=== PATIENT | female | born 1950 | race Hispanic/Latino ===

== ENCOUNTER 2017-12-03 06:56 | Inpatient (IN) | payer MEDICARE ==
[2017-12-02 15:17] VITALS: BP 122/61
[2017-12-02 15:27] LABS: BASOPHILS % (AUTO) 0.8 % (0.0-5.0); EOSINOPHILS % (AUTO) 3.8 % (0.0-8.0); LYMPHOCYTES % (AUTO) 30.4 % (21.0-51.0); MEAN CORPUSCULAR HEMOGLOBIN 29.8 pg (27.0-33.0); MEAN CORPUSCULAR HGB CONC 33.8 g/dL (32.0-36.0); MONOCYTES % (AUTO) 6.6 % (3.0-13.0); NEUTROPHILS % (AUTO) 58.4 % (40.0-77.0); NUCLEATED RED BLOOD CELLS 0.1 % (0.0-0.19); PLATELET COUNT (AUTO) 272 K/uL (130-400); RED BLOOD CELL COUNT(AUTO) 4.55 MIL/uL (4.00-5.50); RED CELL DISTRIBUTION WIDTH 14.9 % (11.0-15.5); WHITE BLOOD COUNT (AUTO) 7.9 K/uL (4.8-10.8)
[2017-12-02 15:29] LABS: APPEARANCE,URINE CLOUDY (CLEAR); BILIRUBIN,URINE NEGATIVE (NEGATIVE); COLOR,URINE YELLOW (YELLOW); GLUCOSE, URINE (UA) 100 mg/dL (NEGATIVE); KETONES,URINE NEGATIVE (NEGATIVE); LEUKOCYTE ESTERASE ,URINE LARGE (NEGATIVE); NITRATE,URINE NEGATIVE (NEGATIVE); OCCULT BLOOD,URINE LARGE (NEGATIVE); PH,URINE 5.5 (5.0-8.0); PROTEIN,URINE 30 (NEGATIVE); UROBILINOGEN,URINE 0.2 mg/dL (0.2-1.0)
[2017-12-02 15:35] LABS: CREATININE 0.8 mg/dL (0.5-1.5); POTASSIUM 4.4 mmol/L (3.5-5.1)
[2017-12-02 15:37] LABS: BACTERIA,URINE Moderate /HPF (None Seen); SQUAMOUS EPITHELIAL CELL,UR Moderate /LPF (0-2)
[2017-12-02 15:39] LABS: INR 0.98 (0.85-1.15); PARTIAL THROMBOPLASTIN TIME 25.4 SEC (26.3-35.5); PROTHROMBIN TIME 10.3 SEC (9.6-11.6)
[2017-12-03] VITALS (15 sets, daily range): BP systolic 104–147; BP diastolic 54–72
[~2017-12-03] VITALS: Ht 157.5 cm; Wt 105.5 kg
[~2017-12-03 06:56] MED LIST: ASPI-555 PO; ATOR20TA65 PO; CLOP75TA14 PO; DIPERA PO; DOCU100C19 PO; DULO30CA51 PO; FAMO40TA7 PO; FURO-152 PO; INSU100I3 SQ; INSU300I SQ; LOSA25TA21 PO; METO-391 PO; MIRA25TA PO; NITR0.4T50 SL; OMEP40CA37 PO; PREG75 PO; SITA100T12 PO; [UNRECOGNIZED DRUG - OTHER] TP
[2017-12-03] MEDS ORDERED: SODIUM CHLORIDE 0.9% 1000ML 1,000 ML IV ONE (07:29)
[2017-12-03] MEDS ORDERED: SULF1TAB3 PO (07:30)
[2017-12-03] MEDS ORDERED: IOPAMIDOL-370 100 ML VIAL IV ONE (08:20)
[2017-12-03] MEDS ORDERED: ISOVUE-370 50ML VIAL IV ONE (08:20)
[2017-12-03] MEDS ORDERED: HEPARIN SODIUM 1000UNIT/ML 10ML VIAL ONE (08:20)
[2017-12-03] MEDS ORDERED: NITROGLYCERIN 5 MG/ML 10 ML VIAL IV ONE (08:20)
[2017-12-03] MEDS ORDERED: LIDOCAINE HCL 2% 20ML ONE (08:21)
[2017-12-03] MEDS ORDERED: FUROSEMIDE 10 MG/ML 2ML VIAL ONE (09:22)
[2017-12-03] MEDS ORDERED: NITROGLYCERIN 0.4 MG SL TAB SL SCH (09:45)
[2017-12-03] MEDS ORDERED: GLUCAGON 1MG KIT 1 MG ML IM PRN (09:45)
[2017-12-03] MEDS ORDERED: DEXTROSE 50%-WATER 50 ML DISP.SYRIN IV PRN (09:45)
[2017-12-03] MEDS: INSULIN LISPRO 100 UNIT/ML 3ML SQ SCH ×2 (11:20→17:00)
[2017-12-03 11:56] LABS: HEMATOCRIT 38.8 % (36-48); MEAN CORPUSCULAR HEMOGLOBIN 29.7 pg (27.0-33.0); MEAN CORPUSCULAR HGB CONC 33.5 g/dL (32.0-36.0); MEAN CORPUSCULAR VOLUME 88.6 fL (79-99); NUCLEATED RED BLOOD CELLS 0.1 % (0.0-0.19); PLATELET COUNT (AUTO) 243 K/uL (130-400); RED BLOOD CELL COUNT(AUTO) 4.38 MIL/uL (4.00-5.50); WHITE BLOOD COUNT (AUTO) 6.4 K/uL (4.8-10.8)
[2017-12-03] MEDS ORDERED: EPINEPHRINE 0.1 MG/ML 10 ML SYG IVP ONE (12:00)
[2017-12-03] MEDS ORDERED: HEPARIN SODIUM 1000UNIT/ML 10ML VIAL IV ONE (12:00)
[2017-12-03] MEDS ORDERED: CALCIUM CHLORIDE 100 MG/ML 10 ML SYG IVP ONE (12:00)
[2017-12-03 12:07] LABS: CHOLESTEROL 218 mg/dL (<200); HDL CHOLESTEROL 44 mg/dL (35-85); LDL DIRECT 157 mg/dL (0-99); TRIGLYCERIDES 163 mg/dL (30-200)
[2017-12-03 12:13] LABS: ALBUMIN 3.3 g/dL (3.5-5.0); BILIRUBIN,TOTAL 0.3 mg/dL (0.2-1.0); CREATININE 0.8 mg/dL (0.5-1.5); POTASSIUM 4.6 mmol/L (3.5-5.1); TOTAL PROTEIN, SERUM 7.8 g/dL (6.0-8.3)
[2017-12-03 12:22] LABS: INR 0.96 (0.85-1.15); PROTHROMBIN TIME 10.1 SEC (9.6-11.6)
[2017-12-03 15:06] LABS: APPEARANCE,URINE Cloudy (CLEAR); BILIRUBIN,URINE Negative (NEGATIVE); COLOR,URINE Yellow (YELLOW); GLUCOSE, URINE (UA) Negative (NEGATIVE); KETONES,URINE Negative (NEGATIVE); LEUKOCYTE ESTERASE ,URINE Moderate (NEGATIVE); NITRATE,URINE Negative (NEGATIVE); OCCULT BLOOD,URINE Moderate (NEGATIVE); PROTEIN,URINE Negative (NEGATIVE); UROBILINOGEN,URINE 0.2 mg/dL (0.2-1.0)
[2017-12-03 15:36] LABS: BACTERIA,URINE Many /HPF (None Seen)
[2017-12-03 15:37] LABS: MUCUS,URINE Rare LPF (None Seen); SQUAMOUS EPITHELIAL CELL,UR 30-50 /LPF (0-2)
[2017-12-03] MEDS: FAMOTIDINE 20MG TAB 20 MG TAB PO SCH (20:59)
[2017-12-03] MEDS: METOPROLOL TARTRATE 25 MG TAB PO SCH (20:59)
[2017-12-03] MEDS: PREGABALIN 75 MG CAPSULE PO SCH (20:59)
[2017-12-03] MEDS: ATORVASTATIN CALCIUM 20 MG TABLET PO SCH (20:59)
[2017-12-03] MEDS: LOSARTAN 50 MG TABLET PO SCH (21:00)
[2017-12-03] MEDS: [UNRECOGNIZED DRUG - OTHER] PO SCH (21:00)
[2017-12-03] MEDS ORDERED: CEFTRIAXONE 1GM/D5W 50ML 50 ML IV SCH (22:15)
[2017-12-04] MEDS ORDERED: ACETAMINOPHEN 325 MG TAB PO PRN
[2017-12-04] MEDS: CEFTRIAXONE SODIUM 1 GM IVP SCH ×2 (00:33→23:04)
[2017-12-04 03:44] VITALS: BP 129/62
[2017-12-04 04:25] LABS: HEMATOCRIT 36.4 % (36-48); MEAN CORPUSCULAR HEMOGLOBIN 29.9 pg (27.0-33.0); MEAN CORPUSCULAR HGB CONC 34.3 g/dL (32.0-36.0); MEAN CORPUSCULAR VOLUME 87.3 fL (79-99); PLATELET COUNT (AUTO) 223 K/uL (130-400); RED BLOOD CELL COUNT(AUTO) 4.17 MIL/uL (4.00-5.50); WHITE BLOOD COUNT (AUTO) 7.2 K/uL (4.8-10.8)
[2017-12-04 04:42] LABS: CREATININE 0.9 mg/dL (0.5-1.5)
[2017-12-04] MEDS ORDERED: CEFUROXIME 1.5GM+NS 100ML 100 ML IV SCH (06:00)
[2017-12-04] MEDS ORDERED: CEFUROXIME SODIUM 1.5 GM VIAL IVP SCH (06:00)
[2017-12-04] MEDS: INSULIN HUMULIN R 100 UNIT/ML 3ML SQ SCH ×4 (06:20→20:51)
[2017-12-04 07:35] VITALS: BP 137/66
[2017-12-04] MEDS ORDERED: INSULIN GLARGINE 100 UNITS/ML 10 ML VIAL SQ SCH (08:00)
[2017-12-04] MEDS ORDERED: ASPIRIN 81 MG EC TAB PO SCH (09:00)
[2017-12-04] MEDS ORDERED: ***HM***(Mirabegron (Myrbetriq) 25 MG) PO SCH (09:00)
[2017-12-04] MEDS ORDERED: APPL TP SCH (09:00)
[2017-12-04] MEDS ORDERED: FUROSEMIDE 20 MG TABLET PO SCH (09:00)
[2017-12-04] MEDS ORDERED: LINAGLIPTIN 5 MG TABLET PO SCH ×2 (09:00→13:23)
[2017-12-04] MEDS ORDERED: DOCUSATE SODIUM 100 MG CAP PO SCH (09:00)
[2017-12-04] MEDS ORDERED: DULOXETINE HCL 30 MG CAP PO SCH (09:00)
[2017-12-04 11:15] VITALS: BP 121/62
[2017-12-04] MEDS: METOPROLOL TARTRATE 25 MG TAB PO SCH ×2 (12:03→21:06)
[2017-12-04] MEDS: PANTOPRAZOLE SODIUM 40 MG TABLET.DR PO SCH (12:04)
[2017-12-04] MEDS: [UNRECOGNIZED DRUG - OTHER] PO SCH ×2 (12:36→21:00)
[2017-12-04] MEDS: INSULIN LISPRO 100 UNIT/ML 3ML SQ SCH ×2 (13:04→17:22)
[2017-12-04 16:11] VITALS: BP 109/62
[2017-12-04 19:13] VITALS: BP 97/64
[2017-12-04] MEDS ORDERED: LOPERAMIDE HCL 1 MG/5 ML UNIT DOSE CUP PO SCH (19:45)
[2017-12-04] MEDS: ATORVASTATIN CALCIUM 20 MG TABLET PO SCH (21:06)
[2017-12-04] MEDS: PREGABALIN 75 MG CAPSULE PO SCH (21:06)
[2017-12-04] MEDS: FAMOTIDINE 20MG TAB 20 MG TAB PO SCH (21:06)
[2017-12-04] MEDS: LOSARTAN 50 MG TABLET PO SCH (21:07)
[2017-12-05] VITALS (20 sets, daily range): BP systolic 94–157; BP diastolic 43–89
[2017-12-05] MEDS: PANTOPRAZOLE SODIUM 40 MG TABLET.DR PO SCH (05:57)
[2017-12-05] MEDS: INSULIN HUMULIN R 100 UNIT/ML 3ML SQ SCH (05:57)
[2017-12-05] MEDS: INSULIN LISPRO 100 UNIT/ML 3ML SQ SCH (05:57)
[2017-12-05] MEDS: METOPROLOL TARTRATE 25 MG TAB PO SCH (06:38)
[2017-12-05] MEDS ORDERED: OCTYL 2-CYANOACRYLATE 1 EACH TP ONE (06:43)
[2017-12-05] MEDS ORDERED: BACITRACIN 50,000 UNIT VIAL ONE (06:43)
[2017-12-05] MEDS ORDERED: PAPAVERINE HCL 30 MG/ML 2ML VIAL ONE (06:43)
[2017-12-05] MEDS ORDERED: NITROGLYCERIN 50 MG/D5% WATER 1 BOT ONE (06:43)
[2017-12-05] MEDS ORDERED: SODIUM CHLORIDE 0.9% 1000ML 1,000 ML IV ONE ×2 (06:44→10:16)
[2017-12-05] MEDS ORDERED: EPINEPHRINE 1 MG/ML 30ML VIAL IJ ONE (06:44)
[2017-12-05] MEDS ORDERED: AMINOCAPROIC ACID 250 MG/ML 20 ML VIAL IV ONE ×2 (06:55→07:46)
[2017-12-05] MEDS: CEFUROXIME SODIUM 1.5 GM VIAL ONE ×2 (06:56→08:00)
[2017-12-05] MEDS ORDERED: SODIUM BICARB 8.4% 50ML SYRINGE ONE ×5 (07:44→10:45)
[2017-12-05] MEDS ORDERED: ROCURONIUM BROMIDE 10MG/1ML 5ML VL ONE ×2 (07:45→07:46)
[2017-12-05] MEDS ORDERED: AMIODARONE HCL 900MG/18ML IV ONE (07:46)
[2017-12-05] MEDS ORDERED: PROTAMINE SULFATE 10 MG/ML 25ML VIAL IV ONE (07:46)
[2017-12-05] MEDS ORDERED: PROPOFOL 10 MG/ML 20ML VIAL IV ONE (07:46)
[2017-12-05] MEDS ORDERED: LIDOCAINE PF 2% 5ML ABBOJECT ONE (07:46)
[2017-12-05] MEDS ORDERED: EPINEPHRINE 1 MG/ML AMPULE ONE (07:46)
[2017-12-05] MEDS ORDERED: MIDAZOLAM HCL 1 MG/ML 5ML VIAL ONE (07:46)
[2017-12-05] MEDS ORDERED: GLYCOPYRROLATE 0.2 MG/ML 5 ML VIAL ONE (07:46)
[2017-12-05] MEDS ORDERED: MILRINONE-D5W 20 MG/100 ML 0 ML IV ONE (07:46)
[2017-12-05] MEDS ORDERED: NOREPINEPHRINE BITARTRATE 1 MG/1 ML ML IV ONE (07:46)
[2017-12-05] MEDS ORDERED: FENTANYL CITRATE PF 50 MCG/1 ML 20ML VIAL IJ ONE (07:46)
[2017-12-05] MEDS ORDERED: ESMOLOL HCL 10 MG/ML 10 ML VIAL ONE (07:46)
[2017-12-05] MEDS ORDERED: KETAMINE 50MG/ML SYRINGE 50 MG/ML DISP.SYRIN IV ONE (07:46)
[2017-12-05] MEDS ORDERED: HEPARIN SODIUM 1000UNIT/ML 10ML VIAL ONE (07:46)
[2017-12-05 08:46] LABS: ABG BASE EXCESS -2.6 mmol/L (-2.0-3.0); ABG HCO3 21.8 mmol/L (21.0-28.0); ABG OXYGEN SATURATION 99.3 % (95.0-99.0); ABG PCO2 36 mmHg (32-45)
[2017-12-05] MEDS ORDERED: THROMBIN-JMI 5000 UNIT/VIAL TP ONE (08:48)
[2017-12-05] MEDS ORDERED: AMBU PUMP 1 EACH EACH MISC SCH (09:45)
[2017-12-05 10:36] LABS: ABG BASE EXCESS -3.3 mmol/L (-2.0-3.0); ABG HCO3 20.5 mmol/L (21.0-28.0); ABG OXYGEN SATURATION 99.1 % (95.0-99.0); ABG PCO2 33 mmHg (32-45)
[2017-12-05] MEDS ORDERED: SODIUM CHLORIDE 0.9% 500ML 500 ML IV SCH (10:36)
[2017-12-05] MEDS ORDERED: MORPHINE SULFATE 4 MG/1ML SYG IV PRN (10:45)
[2017-12-05] MEDS ORDERED: EPINEPHRINE 2 MG in SODIUM CHLORIDE 0.9% 250 ML IV PRN (10:45)
[2017-12-05] MEDS ORDERED: NITROGLYCERIN 50 MG/D5% WATER 250 BOT IV SCH (10:45)
[2017-12-05] MEDS ORDERED: ACETAMINOPHEN 650 MG SUPPOSITORY RC PRN (10:45)
[2017-12-05] MEDS ORDERED: CALCIUM GLUCONATE 1 GM in SODIUM CHLORIDE 0.9% 50 ML IV PRN (10:45)
[2017-12-05] MEDS ORDERED: NICARDIPINE HCL 100 MG in SODIUM CHLORIDE 0.9% 100 ML IV PRN (10:45)
[2017-12-05] MEDS ORDERED: SODIUM CHLORIDE 0.9% 1000ML 1,000 ML IV SCH (10:45)
[2017-12-05] MEDS ORDERED: MORPHINE SULFATE 2 MG/ML 1ML SYG IV PRN (10:45)
[2017-12-05] MEDS ORDERED: AMINOCAPROIC ACID 15,000 MG in SODIUM CHLORIDE 0.9% 250 ML IV SCH (10:45)
[2017-12-05] MEDS ORDERED: PROPOFOL 1000 MG/100 ML 100 ML IV PRN (10:45)
[2017-12-05] MEDS ORDERED: DEXTROSE 50%-WATER 50 ML DISP.SYRIN IV PRN (10:45)
[2017-12-05] MEDS ORDERED: NOREPINEPHRINE 4MG/NS 250ML 250 ML IV PRN (10:45)
[2017-12-05] MEDS ORDERED: SODIUM CHLORIDE 0.9% 10 ML VIAL IVP PRN (10:45)
[2017-12-05] MEDS ORDERED: POTASSIUM PHOS 15 mMOL+NS250ML 250 ML IV PRN (10:45)
[2017-12-05] MEDS ORDERED: GLUCAGON 1MG KIT 1 MG ML IM PRN (10:45)
[2017-12-05] MEDS ORDERED: ALBUMIN (HUMAN) 5% 250 ML IV PRN (10:45)
[2017-12-05] MEDS ORDERED: SODIUM CHLORIDE 0.9% 250 ML IV PRN (10:45)
[2017-12-05] MEDS ORDERED: ROPIVACAINE 0.2% 2MG/ML 100ML VIAL IJ ONE (11:00)
[2017-12-05 11:41] LABS: HEMATOCRIT 34.4 % (36-48); MEAN CORPUSCULAR HEMOGLOBIN 29.9 pg (27.0-33.0); MEAN CORPUSCULAR HGB CONC 33.8 g/dL (32.0-36.0); MEAN CORPUSCULAR VOLUME 88.3 fL (79-99); PLATELET COUNT (AUTO) 313 K/uL (130-400); RED BLOOD CELL COUNT(AUTO) 3.89 MIL/uL (4.00-5.50); RED CELL DISTRIBUTION WIDTH 14.9 % (11.0-15.5); WHITE BLOOD COUNT (AUTO) 28.7 K/uL (4.8-10.8)
[2017-12-05 11:56] LABS: CREATININE 0.9 mg/dL (0.5-1.5); MAGNESIUM 1.4 mg/dL (1.80-2.40); PHOSPHORUS 4.7 mg/dL (2.5-4.9); POTASSIUM 4.1 mmol/L (3.5-5.1)
[2017-12-05] MEDS: INSULIN REGULAR, HUMAN 3ML 100 UNIT in SODIUM CHLORIDE 0.9% 99 ML IV SCH ×4 (12:14→17:46)
[2017-12-05] MEDS: POTASSIUM CHLORIDE 20MEQ/100ML 100 ML IV PRN ×4 (12:16→18:21)
[2017-12-05 12:22] LABS: ABG HCO3 20.9 mmol/L (21.0-28.0); ABG OXYGEN SATURATION 98.2 % (95.0-99.0); ABG PCO2 46 mmHg (32-45)
[2017-12-05] MEDS ORDERED: SODIUM BICARB 50MEQ 50ML VIAL ONE ×3 (12:22→14:10)
[2017-12-05] MEDS: SODIUM BICARB 8.4% 50ML SYRINGE IV PRN ×2 (12:23→13:27)
[2017-12-05] MEDS: MAGNESIUM 2GM PREMIX 50ML 50 ML IV PRN ×2 (12:30→20:59)
[2017-12-05 13:23] LABS: ABG BASE EXCESS -4.5 mmol/L (-2.0-3.0); ABG HCO3 21.4 mmol/L (21.0-28.0); ABG OXYGEN SATURATION 96.1 % (95.0-99.0); ABG PCO2 43 mmHg (32-45)
[2017-12-05 15:31] LABS: CREATININE 1.2 mg/dL (0.5-1.5); POTASSIUM 3.7 mmol/L (3.5-5.1)
[2017-12-05 18:13] LABS: ABG BASE EXCESS -0.4 mmol/L (-2.0-3.0); ABG HCO3 25.1 mmol/L (21.0-28.0); ABG OXYGEN SATURATION 96.8 % (95.0-99.0); ABG PCO2 45 mmHg (32-45)
[2017-12-05] MEDS: CEFUROXIME SODIUM 1.5 GM VIAL IVP SCH (18:21)
[2017-12-05] MEDS: WATER FOR INJECTION,STERILE 20 ML VIAL IJ SCH (18:22)
[2017-12-05] MEDS ORDERED: CEFUROXIME 1.5GM+NS 100ML 100 ML IV SCH (18:45)
[2017-12-05 19:54] LABS: ABG BASE EXCESS 0.5 mmol/L (-2.0-3.0); ABG OXYGEN SATURATION 95.4 % (95.0-99.0); ABG PCO2 45 mmHg (32-45)
[2017-12-05 20:48] LABS: MAGNESIUM 1.7 mg/dL (1.80-2.40); POTASSIUM 4.1 mmol/L (3.5-5.1)
[2017-12-05] MEDS: ONDANSETRON HCL 4 MG/2 ML VIAL IV PRN (21:49)
[2017-12-05] MEDS: HYDROCODONE/ACETAMINOPHEN 5/325 MG TAB PO PRN (23:50)
[2017-12-06] VITALS (23 sets, daily range): BP systolic 90–138; BP diastolic 42–70
[2017-12-06] MEDS: INSULIN REGULAR, HUMAN 3ML 100 UNIT in SODIUM CHLORIDE 0.9% 99 ML IV SCH ×2 (03:28)
[2017-12-06 04:18] LABS: HEMATOCRIT 29.3 % (36-48); MEAN CORPUSCULAR HEMOGLOBIN 30.9 pg (27.0-33.0); MEAN CORPUSCULAR HGB CONC 35.1 g/dL (32.0-36.0); MEAN CORPUSCULAR VOLUME 88.2 fL (79-99); PLATELET COUNT (AUTO) 256 K/uL (130-400); RED BLOOD CELL COUNT(AUTO) 3.33 MIL/uL (4.00-5.50); RED CELL DISTRIBUTION WIDTH 15.2 % (11.0-15.5); WHITE BLOOD COUNT (AUTO) 22.7 K/uL (4.8-10.8)
[2017-12-06] MEDS: ACETAMINOPHEN 325 MG TAB PO PRN (04:27)
[2017-12-06 04:28] LABS: CREATININE 0.9 mg/dL (0.5-1.5); MAGNESIUM 2.3 mg/dL (1.80-2.40); PHOSPHORUS 4.6 mg/dL (2.5-4.9); POTASSIUM 4.7 mmol/L (3.5-5.1)
[2017-12-06] MEDS: ONDANSETRON HCL 4 MG/2 ML VIAL IV PRN (04:29)
[2017-12-06] MEDS: CEFUROXIME SODIUM 1.5 GM VIAL IVP SCH ×2 (06:28→19:01)
[2017-12-06] MEDS: WATER FOR INJECTION,STERILE 20 ML VIAL IJ SCH ×2 (06:29→19:01)
[2017-12-06] MEDS: ASPIRIN 81MG TAB.CHEW PO SCH (09:47)
[2017-12-06] MEDS: PANTOPRAZOLE SODIUM 40 MG TABLET.DR PO SCH (09:47)
[2017-12-06] MEDS: EPINEPHRINE 8 MG in SODIUM CHLORIDE 0.9% 250 ML IV PRN (14:49)
[2017-12-06] MEDS: ATORVASTATIN CALCIUM 10 MG TABLET PO SCH (20:29)
[2017-12-06] MEDS: HYDROCODONE/ACETAMINOPHEN 5/325 MG TAB PO PRN (20:29)
[2017-12-07] VITALS (28 sets, daily range): BP systolic 47–220; BP diastolic 19–135
[2017-12-07] MEDS: TRAMADOL HCL 50 MG TABLET PO PRN (01:18)
[2017-12-07] MEDS ORDERED: INSULIN HUMULIN R 100 UNIT/ML 3ML ONE (05:20)
[2017-12-07] MEDS ORDERED: SODIUM CHLORIDE 0.9% 100 ML IV ONE (05:20)
[2017-12-07 05:52] LABS: HEMATOCRIT 26.8 % (36-48); MEAN CORPUSCULAR HEMOGLOBIN 29.8 pg (27.0-33.0); MEAN CORPUSCULAR HGB CONC 33.2 g/dL (32.0-36.0); MEAN CORPUSCULAR VOLUME 89.6 fL (79-99); PLATELET COUNT (AUTO) 207 K/uL (130-400); RED BLOOD CELL COUNT(AUTO) 2.99 MIL/uL (4.00-5.50); RED CELL DISTRIBUTION WIDTH 15.7 % (11.0-15.5); WHITE BLOOD COUNT (AUTO) 20.3 K/uL (4.8-10.8)
[2017-12-07 05:59] LABS: CREATININE 0.8 mg/dL (0.5-1.5); POTASSIUM 4.4 mmol/L (3.5-5.1)
[2017-12-07 06:10] LABS: ALBUMIN 2.1 g/dL (3.5-5.0); BILIRUBIN,TOTAL 0.5 mg/dL (0.2-1.0); MAGNESIUM 2.2 mg/dL (1.80-2.40); TOTAL PROTEIN, SERUM 6.4 g/dL (6.0-8.3)
[2017-12-07 06:23] LABS: BAND NEUTROPHILS % (MANUAL) 15 % (0-2); BASOPHILS % (MANUAL) 1 % (0-2); LYMPHOCYTES % (MANUAL) 4 % (22-44); MAN.DIFF COMMENT-IMPRESSION MANUAL DIFFERENTIAL; MONOCYTES % (MANUAL) 6 % (2-9); PLATELET MORPHOLOGY COMMENT ADEQUATE; SEGMENTED NEUTROPHILS % 74 % (40-70)
[2017-12-07] MEDS: ASPIRIN 81MG TAB.CHEW PO SCH (08:38)
[2017-12-07] MEDS: PANTOPRAZOLE SODIUM 40 MG TABLET.DR PO SCH (08:38)
[2017-12-07] MEDS: INSULIN HUMULIN R 100 UNIT/ML 3ML SQ SCH ×3 (11:19→21:00)
[2017-12-07] MEDS: FUROSEMIDE 20 MG TABLET PO SCH ×2 (16:42→21:09)
[2017-12-07] MEDS ORDERED: METOPROLOL TARTRATE 25 MG TAB PO SCH (21:00)
[2017-12-07] MEDS: ATORVASTATIN CALCIUM 10 MG TABLET PO SCH (21:09)
[2017-12-07] MEDS ORDERED: PROPOFOL 1000 MG/100 ML 100 ML IV ONE (21:28)
[2017-12-07 21:41] LABS: HEMATOCRIT 27.2 % (36-48); MEAN CORPUSCULAR HEMOGLOBIN 29.7 pg (27.0-33.0); MEAN CORPUSCULAR HGB CONC 32.3 g/dL (32.0-36.0); MEAN CORPUSCULAR VOLUME 92.1 fL (79-99); PLATELET COUNT (AUTO) 232 K/uL (130-400); RED BLOOD CELL COUNT(AUTO) 2.95 MIL/uL (4.00-5.50); RED CELL DISTRIBUTION WIDTH 15.8 % (11.0-15.5); WHITE BLOOD COUNT (AUTO) 24.1 K/uL (4.8-10.8)
[2017-12-07] MEDS ORDERED: EPINEPHRINE 1 MG/ML AMPULE ONE (21:46)
[2017-12-07 21:53] LABS: BAND NEUTROPHILS % (MANUAL) 1 % (0-2); LYMPHOCYTES % (MANUAL) 22 % (22-44); MONOCYTES % (MANUAL) 6 % (2-9); POTASSIUM 3.3 mmol/L (3.5-5.1); SEGMENTED NEUTROPHILS % 71 % (40-70)
[2017-12-07 21:54] LABS: NUCLEATED RED BLOOD CELLS 1.2 % (0.0-0.19); PLATELET MORPHOLOGY COMMENT ADEQUATE
[2017-12-07 21:57] LABS: BILIRUBIN,TOTAL 0.4 mg/dL (0.2-1.0); MAGNESIUM 2.6 mg/dL (1.80-2.40); PHOSPHORUS 3.6 mg/dL (2.5-4.9); TOTAL PROTEIN, SERUM 6.5 g/dL (6.0-8.3)
[2017-12-07 22:00] LABS: ABG BASE EXCESS -1.9 mmol/L (-2.0-3.0); ABG HCO3 24.6 mmol/L (21.0-28.0); ABG PCO2 50 mmHg (32-45)
[2017-12-07] MEDS ORDERED: DEXTROSE 5% IV PRN (23:45)
[2017-12-07] MEDS ORDERED: WATER IV PRN (23:45)
[2017-12-07] MEDS ORDERED: EPINEPHRINE IV PRN (23:45)
[2017-12-08] VITALS (20 sets, daily range): BP systolic 93–146; BP diastolic 45–92
[2017-12-08] LABS: ABG HCO3 26.1 mmol/L (21.0-28.0); ABG OXYGEN SATURATION 98.8 % (95.0-99.0); ABG PCO2 44 mmHg (32-45)
[2017-12-08 01:27] LABS: ABG BASE EXCESS 1.3 mmol/L (-2.0-3.0); ABG HCO3 25.9 mmol/L (21.0-28.0); ABG PCO2 41 mmHg (32-45)
[2017-12-08 02:57] LABS: HEMATOCRIT 24.7 % (36-48); MEAN CORPUSCULAR HEMOGLOBIN 30.6 pg (27.0-33.0); MEAN CORPUSCULAR VOLUME 89.9 fL (79-99); NUCLEATED RED BLOOD CELLS 0.1 % (0.0-0.19); PLATELET COUNT (AUTO) 240 K/uL (130-400); RED BLOOD CELL COUNT(AUTO) 2.75 MIL/uL (4.00-5.50); RED CELL DISTRIBUTION WIDTH 15.9 % (11.0-15.5); WHITE BLOOD COUNT (AUTO) 19.5 K/uL (4.8-10.8)
[2017-12-08 03:24] LABS: BILIRUBIN,TOTAL 0.5 mg/dL (0.2-1.0); CREATININE 1.2 mg/dL (0.5-1.5); POTASSIUM 4.5 mmol/L (3.5-5.1); TOTAL PROTEIN, SERUM 6.4 g/dL (6.0-8.3)
[2017-12-08 03:37] LABS: ABG BASE EXCESS 2.7 mmol/L (-2.0-3.0); ABG HCO3 26.6 mmol/L (21.0-28.0); ABG OXYGEN SATURATION 96.8 % (95.0-99.0); ABG PCO2 39 mmHg (32-45)
[2017-12-08 03:41] LABS: BAND NEUTROPHILS % (MANUAL) 12 % (0-2); EOSINOPHILS % (MANUAL) 2 % (1-6); LYMPHOCYTES % (MANUAL) 16 % (22-44); MAN.DIFF COMMENT-IMPRESSION MANUAL DIFFERENTIAL; MONOCYTES % (MANUAL) 3 % (2-9); PLATELET MORPHOLOGY COMMENT ADEQUATE; SEGMENTED NEUTROPHILS % 67 % (40-70)
[2017-12-08 06:24] LABS: ABG BASE EXCESS 3.1 mmol/L (-2.0-3.0); ABG HCO3 27.8 mmol/L (21.0-28.0); ABG OXYGEN SATURATION 95.8 % (95.0-99.0); ABG PCO2 43 mmHg (32-45)
[2017-12-08] MEDS: TRAMADOL HCL 50 MG TABLET PO PRN ×2 (06:56→20:28)
[2017-12-08] MEDS: INSULIN HUMULIN R 100 UNIT/ML 3ML SQ SCH ×4 (06:57→20:24)
[2017-12-08] MEDS: FUROSEMIDE 20 MG TABLET PO SCH ×2 (08:18→20:26)
[2017-12-08] MEDS: ASPIRIN 81MG TAB.CHEW PO SCH (08:18)
[2017-12-08] MEDS: PANTOPRAZOLE SODIUM 40 MG TABLET.DR PO SCH (08:18)
[2017-12-08] MEDS: ENOXAPARIN SODIUM 30 MG/0.3 ML SQ SCH (08:22)
[2017-12-08] MEDS: ATORVASTATIN CALCIUM 10 MG TABLET PO SCH (20:26)
[2017-12-09] VITALS (25 sets, daily range): BP systolic 97–168; BP diastolic 51–84
[2017-12-09] MEDS: TRAMADOL HCL 50 MG TABLET PO PRN ×2 (01:14→20:30)
[2017-12-09] MEDS ORDERED: AMIODARONE HCL 900MG/18ML IV ONE ×2 (01:36→02:08)
[2017-12-09] MEDS ORDERED: DEXTROSE 5%-WATER 500 ML IV ONE (01:37)
[2017-12-09] MEDS ORDERED: AMIODARONE HCL 150 MG in DEXTROSE 5%-WATER 100 ML IV SCH (02:00)
[2017-12-09] MEDS ORDERED: AMIODARONE HCL 900 MG in DEXTROSE 5%-WATER 500 ML IV SCH (02:00)
[2017-12-09 05:25] LABS: HEMATOCRIT 23.7 % (36-48); MEAN CORPUSCULAR HEMOGLOBIN 29.9 pg (27.0-33.0); MEAN CORPUSCULAR HGB CONC 32.9 g/dL (32.0-36.0); MEAN CORPUSCULAR VOLUME 90.8 fL (79-99); NUCLEATED RED BLOOD CELLS 0.4 % (0.0-0.19); PLATELET COUNT (AUTO) 233 K/uL (130-400); RED BLOOD CELL COUNT(AUTO) 2.61 MIL/uL (4.00-5.50); RED CELL DISTRIBUTION WIDTH 15.6 % (11.0-15.5); WHITE BLOOD COUNT (AUTO) 11.5 K/uL (4.8-10.8)
[2017-12-09 05:35] LABS: CREATININE 0.9 mg/dL (0.5-1.5); MAGNESIUM 2.3 mg/dL (1.80-2.40); PHOSPHORUS 2.8 mg/dL (2.5-4.9); POTASSIUM 4.4 mmol/L (3.5-5.1)
[2017-12-09 05:43] LABS: B-TYPE NATRIURETIC PEPTIDE 1100 pg/mL (0-100)
[2017-12-09] MEDS: INSULIN HUMULIN R 100 UNIT/ML 3ML SQ SCH ×4 (06:41→20:43)
[2017-12-09] MEDS ORDERED: FUROSEMIDE 10 MG/ML 2ML VIAL IV SCH (07:45)
[2017-12-09 08:14] LABS: CREATINE KINASE MB 0.9 ng/mL (0.5-3.6)
[2017-12-09 08:24] LABS: TROPONIN I 0.62 ng/mL (0.00-0.06)
[2017-12-09] MEDS: ASPIRIN 81MG TAB.CHEW PO SCH (08:59)
[2017-12-09] MEDS: PANTOPRAZOLE SODIUM 40 MG TABLET.DR PO SCH (08:59)
[2017-12-09] MEDS: ENOXAPARIN SODIUM 30 MG/0.3 ML SQ SCH (09:00)
[2017-12-09] MEDS ORDERED: MEROPENEM 1GM IVPB PREMIXED 1 GM IV SCH (09:15)
[2017-12-09] MEDS: FUROSEMIDE 100 MG in SODIUM CHLORIDE 0.9% 90 ML IV SCH ×2 (09:22→22:44)
[2017-12-09] MEDS: MEROPENEM 1 GM VIAL IVP SCH ×2 (09:57→20:25)
[2017-12-09] MEDS ORDERED: DOBUTAMINE 250MG/D5 250ML 250 ML IV SCH (11:30)
[2017-12-09] MEDS: EPINEPHRINE 8 MG in SODIUM CHLORIDE 0.9% 250 ML IV PRN (12:40)
[2017-12-09] MEDS: DOBUTAMINE HCL 250 MG in SODIUM CHLORIDE 0.9% 250 ML IV SCH (20:06)
[2017-12-09] MEDS: ATORVASTATIN CALCIUM 10 MG TABLET PO SCH (20:25)
[2017-12-10] VITALS (24 sets, daily range): BP systolic 93–153; BP diastolic 46–82
[2017-12-10] MEDS: DOBUTAMINE HCL 250 MG in SODIUM CHLORIDE 0.9% 250 ML IV SCH ×2 (02:44→12:15)
[2017-12-10 04:13] LABS: HEMATOCRIT 22.3 % (36-48); MEAN CORPUSCULAR HEMOGLOBIN 31.4 pg (27.0-33.0); MEAN CORPUSCULAR HGB CONC 35.4 g/dL (32.0-36.0); MEAN CORPUSCULAR VOLUME 88.9 fL (79-99); NUCLEATED RED BLOOD CELLS 0.5 % (0.0-0.19); PLATELET COUNT (AUTO) 225 K/uL (130-400); RED BLOOD CELL COUNT(AUTO) 2.51 MIL/uL (4.00-5.50); RED CELL DISTRIBUTION WIDTH 15.8 % (11.0-15.5); WHITE BLOOD COUNT (AUTO) 7.9 K/uL (4.8-10.8)
[2017-12-10 04:27] LABS: CREATININE 0.8 mg/dL (0.5-1.5); MAGNESIUM 1.7 mg/dL (1.80-2.40); PHOSPHORUS 2.3 mg/dL (2.5-4.9); POTASSIUM 3.7 mmol/L (3.5-5.1)
[2017-12-10] MEDS: POTASSIUM CHLORIDE 20MEQ/100ML 100 ML IV PRN (04:41)
[2017-12-10 04:58] LABS: BAND NEUTROPHILS % (MANUAL) 5 % (0-2); EOSINOPHILS % (MANUAL) 3 % (1-6); LYMPHOCYTES % (MANUAL) 32 % (22-44); MAN.DIFF COMMENT-IMPRESSION MANUAL DIFFERENTIAL; MONOCYTES % (MANUAL) 4 % (2-9); PLATELET MORPHOLOGY COMMENT ADEQUATE; SEGMENTED NEUTROPHILS % 56 % (40-70)
[2017-12-10 05:19] LABS: B-TYPE NATRIURETIC PEPTIDE 728 pg/mL (0-100)
[2017-12-10] MEDS: MAGNESIUM 2GM PREMIX 50ML 50 ML IV PRN (05:53)
[2017-12-10] MEDS: INSULIN HUMULIN R 100 UNIT/ML 3ML SQ SCH ×4 (05:58→20:24)
[2017-12-10 07:52] LABS: ABG BASE EXCESS 5.2 mmol/L (-2.0-3.0); ABG HCO3 30.9 mmol/L (21.0-28.0); ABG PCO2 49 mmHg (32-45)
[2017-12-10] MEDS: MEROPENEM 1 GM VIAL IVP SCH ×2 (08:28→20:29)
[2017-12-10] MEDS: FUROSEMIDE 10 MG/ML 2ML VIAL IV SCH ×2 (08:28→18:08)
[2017-12-10] MEDS: PANTOPRAZOLE SODIUM 40 MG TABLET.DR PO SCH (08:28)
[2017-12-10] MEDS: ASPIRIN 81MG TAB.CHEW PO SCH (08:28)
[2017-12-10] MEDS: HYDROCODONE/ACETAMINOPHEN 5/325 MG TAB PO PRN ×3 (08:43→20:33)
[2017-12-10] MEDS ORDERED: AMIODARONE HCL 200 MG TABLET PO SCH (09:00)
[2017-12-10] MEDS ORDERED: DOBUTAMINE HCL 250 MG in SODIUM CHLORIDE 0.9% 250 ML IV SCH (12:30)
[2017-12-10] MEDS ORDERED: POTASSIUM PHOS 15 mMOL+NS250ML 250 ML IV SCH (16:00)
[2017-12-10] MEDS ORDERED: MAGNESIUM 2GM PREMIX 50ML 50 ML IV SCH (16:00)
[2017-12-10] MEDS: ATORVASTATIN CALCIUM 10 MG TABLET PO SCH (20:29)
[2017-12-10] MEDS ORDERED: COMPOUND IV MISC 1 EACH IVSOLN MISC PRN (20:45)
[2017-12-11] VITALS (25 sets, daily range): BP systolic 70–161; BP diastolic 25–87
[2017-12-11 04:12] LABS: BASOPHILS % (AUTO) 0.4 % (0.0-5.0); HEMATOCRIT 25.8 % (36-48); LYMPHOCYTES % (AUTO) 13.6 % (21.0-51.0); MEAN CORPUSCULAR HGB CONC 33.8 g/dL (32.0-36.0); MEAN CORPUSCULAR VOLUME 88.9 fL (79-99); MONOCYTES % (AUTO) 8.7 % (3.0-13.0); NEUTROPHILS % (AUTO) 74.3 % (40.0-77.0); NUCLEATED RED BLOOD CELLS 0.3 % (0.0-0.19); PLATELET COUNT (AUTO) 301 K/uL (130-400); RED BLOOD CELL COUNT(AUTO) 2.91 MIL/uL (4.00-5.50); RED CELL DISTRIBUTION WIDTH 15.7 % (11.0-15.5); WHITE BLOOD COUNT (AUTO) 8.7 K/uL (4.8-10.8)
[2017-12-11] MEDS: HYDROCODONE/ACETAMINOPHEN 5/325 MG TAB PO PRN ×3 (04:26→21:52)
[2017-12-11 04:56] LABS: INR 1.05 (0.85-1.15); PARTIAL THROMBOPLASTIN TIME 25.2 SEC (26.3-35.5)
[2017-12-11 05:10] LABS: ALBUMIN 1.8 g/dL (3.5-5.0); BILIRUBIN,TOTAL 0.6 mg/dL (0.2-1.0); CREATININE 0.8 mg/dL (0.5-1.5); MAGNESIUM 1.8 mg/dL (1.80-2.40); PHOSPHORUS 2.9 mg/dL (2.5-4.9); POTASSIUM 3.9 mmol/L (3.5-5.1); TOTAL PROTEIN, SERUM 6.6 g/dL (6.0-8.3)
[2017-12-11] MEDS: POTASSIUM CHLORIDE 20MEQ/100ML 100 ML IV PRN (05:26)
[2017-12-11] MEDS: FUROSEMIDE 10 MG/ML 2ML VIAL IV SCH (06:03)
[2017-12-11] MEDS: INSULIN HUMULIN R 100 UNIT/ML 3ML SQ SCH ×4 (06:04→21:01)
[2017-12-11] MEDS: ENOXAPARIN SODIUM 30 MG/0.3 ML SQ SCH (09:00)
[2017-12-11] MEDS: ASPIRIN 81MG TAB.CHEW PO SCH (09:26)
[2017-12-11] MEDS: PANTOPRAZOLE SODIUM 40 MG TABLET.DR PO SCH (09:26)
[2017-12-11] MEDS: MEROPENEM 1 GM VIAL IVP SCH ×2 (09:26→20:40)
[2017-12-11] MEDS: AMIODARONE HCL 200 MG TABLET PO SCH ×2 (09:26→20:51)
[2017-12-11] MEDS: FUROSEMIDE 10 MG/ML 4ML VIAL IV SCH (17:43)
[2017-12-11] MEDS ORDERED: MAGNESIUM 2GM PREMIX 50ML 50 ML IV SCH (17:45)
[2017-12-11] MEDS: ATORVASTATIN CALCIUM 10 MG TABLET PO SCH (20:50)
[2017-12-12] VITALS (17 sets, daily range): BP systolic 101–148; BP diastolic 45–76
[2017-12-12 03:46] LABS: HEMATOCRIT 24.8 % (36-48); MEAN CORPUSCULAR HEMOGLOBIN 31.1 pg (27.0-33.0); MEAN CORPUSCULAR HGB CONC 35.1 g/dL (32.0-36.0); MEAN CORPUSCULAR VOLUME 88.5 fL (79-99); NUCLEATED RED BLOOD CELLS 0.3 % (0.0-0.19); PLATELET COUNT (AUTO) 335 K/uL (130-400); RED BLOOD CELL COUNT(AUTO) 2.81 MIL/uL (4.00-5.50); RED CELL DISTRIBUTION WIDTH 15.7 % (11.0-15.5); WHITE BLOOD COUNT (AUTO) 9.9 K/uL (4.8-10.8)
[2017-12-12 03:58] LABS: ALBUMIN 1.9 g/dL (3.5-5.0); BILIRUBIN,TOTAL 0.6 mg/dL (0.2-1.0); CREATININE 0.7 mg/dL (0.5-1.5); MAGNESIUM 1.7 mg/dL (1.80-2.40); PHOSPHORUS 2.7 mg/dL (2.5-4.9); POTASSIUM 3.6 mmol/L (3.5-5.1); TOTAL PROTEIN, SERUM 6.5 g/dL (6.0-8.3)
[2017-12-12 04:22] LABS: B-TYPE NATRIURETIC PEPTIDE 1200 pg/mL (0-100)
[2017-12-12 04:36] LABS: ABG BASE EXCESS 7.3 mmol/L (-2.0-3.0); ABG HCO3 32.3 mmol/L (21.0-28.0); ABG PCO2 47 mmHg (32-45)
[2017-12-12] MEDS: POTASSIUM CHLORIDE 20MEQ/100ML 100 ML IV PRN (05:44)
[2017-12-12] MEDS: MAGNESIUM 2GM PREMIX 50ML 50 ML IV PRN (05:44)
[2017-12-12] MEDS: INSULIN HUMULIN R 100 UNIT/ML 3ML SQ SCH ×4 (05:56→21:00)
[2017-12-12] MEDS: FUROSEMIDE 10 MG/ML 4ML VIAL IV SCH ×2 (06:55→16:49)
[2017-12-12] MEDS: AMIODARONE HCL 200 MG TABLET PO SCH ×2 (08:18→21:23)
[2017-12-12] MEDS: MEROPENEM 1 GM VIAL IVP SCH ×2 (08:19→21:23)
[2017-12-12] MEDS: ASPIRIN 81MG TAB.CHEW PO SCH (08:19)
[2017-12-12] MEDS: PANTOPRAZOLE SODIUM 40 MG TABLET.DR PO SCH (08:19)
[2017-12-12] MEDS: ENOXAPARIN SODIUM 30 MG/0.3 ML SQ SCH (16:58)
[2017-12-12] MEDS: ATORVASTATIN CALCIUM 10 MG TABLET PO SCH (21:23)
[2017-12-13] MEDS: ACETAMINOPHEN 325 MG TAB PO PRN (00:11)
[2017-12-13 03:00] VITALS: BP 113/51
[2017-12-13 04:35] LABS: HEMATOCRIT 24.3 % (36-48); MEAN CORPUSCULAR HEMOGLOBIN 30.4 pg (27.0-33.0); MEAN CORPUSCULAR HGB CONC 34.2 g/dL (32.0-36.0); MEAN CORPUSCULAR VOLUME 88.7 fL (79-99); NUCLEATED RED BLOOD CELLS 0.2 % (0.0-0.19); PLATELET COUNT (AUTO) 333 K/uL (130-400); RED BLOOD CELL COUNT(AUTO) 2.74 MIL/uL (4.00-5.50); RED CELL DISTRIBUTION WIDTH 15.8 % (11.0-15.5); WHITE BLOOD COUNT (AUTO) 8.7 K/uL (4.8-10.8)
[2017-12-13 04:46] LABS: CREATININE 0.7 mg/dL (0.5-1.5); POTASSIUM 3.4 mmol/L (3.5-5.1)
[2017-12-13] MEDS: HYDROCODONE/ACETAMINOPHEN 5/325 MG TAB PO PRN ×3 (04:57→21:28)
[2017-12-13 05:17] LABS: B-TYPE NATRIURETIC PEPTIDE 960 pg/mL (0-100)
[2017-12-13] MEDS ORDERED: POTASSIUM CHLORIDE 20 MEQ ERTAB PO ONE (06:01)
[2017-12-13] MEDS: FUROSEMIDE 10 MG/ML 4ML VIAL IV SCH ×2 (06:05→17:39)
[2017-12-13] MEDS: INSULIN HUMULIN R 100 UNIT/ML 3ML SQ SCH ×4 (06:18→20:35)
[2017-12-13 08:00] VITALS: BP 154/74
[2017-12-13] MEDS: ASPIRIN 81MG TAB.CHEW PO SCH (09:46)
[2017-12-13] MEDS: AMIODARONE HCL 200 MG TABLET PO SCH ×2 (09:46→20:10)
[2017-12-13] MEDS: PANTOPRAZOLE SODIUM 40 MG TABLET.DR PO SCH (09:46)
[2017-12-13] MEDS: MEROPENEM 1 GM VIAL IVP SCH ×2 (09:46→20:09)
[2017-12-13] MEDS: POTASSIUM CHLORIDE 20 MEQ ERTAB PO PRN (09:47)
[2017-12-13] MEDS: ENOXAPARIN SODIUM 30 MG/0.3 ML SQ SCH (09:47)
[2017-12-13 11:49] VITALS: BP 112/58
[2017-12-13 14:10] LABS: CREATININE 0.8 mg/dL (0.5-1.5); POTASSIUM 4.2 mmol/L (3.5-5.1)
[2017-12-13 16:00] VITALS: BP 115/54
[2017-12-13 20:06] VITALS: BP 112/55
[2017-12-13] MEDS: ATORVASTATIN CALCIUM 10 MG TABLET PO SCH (20:10)
[2017-12-14] VITALS (7 sets, daily range): BP systolic 115–160; BP diastolic 51–77
[2017-12-14 04:50] LABS: CREATININE 0.7 mg/dL (0.5-1.5); POTASSIUM 3.9 mmol/L (3.5-5.1)
[2017-12-14] MEDS: FUROSEMIDE 10 MG/ML 4ML VIAL IV SCH (05:07)
[2017-12-14] MEDS: INSULIN HUMULIN R 100 UNIT/ML 3ML SQ SCH ×4 (06:10→20:51)
[2017-12-14] MEDS: MEROPENEM 1 GM VIAL IVP SCH (09:06)
[2017-12-14] MEDS: PANTOPRAZOLE SODIUM 40 MG TABLET.DR PO SCH (09:07)
[2017-12-14] MEDS: ASPIRIN 81MG TAB.CHEW PO SCH (09:07)
[2017-12-14] MEDS: AMIODARONE HCL 200 MG TABLET PO SCH ×2 (09:07→19:57)
[2017-12-14] MEDS: FUROSEMIDE 20 MG TABLET PO SCH ×2 (09:07→16:50)
[2017-12-14] MEDS: ENOXAPARIN SODIUM 30 MG/0.3 ML SQ SCH (09:08)
[2017-12-14] MEDS: HYDROCODONE/ACETAMINOPHEN 5/325 MG TAB PO PRN (18:39)
[2017-12-14] MEDS: ATORVASTATIN CALCIUM 10 MG TABLET PO SCH (19:57)
[2017-12-15 04:47] LABS: CREATININE 0.6 mg/dL (0.5-1.5); POTASSIUM 3.7 mmol/L (3.5-5.1)
[2017-12-15] MEDS: INSULIN HUMULIN R 100 UNIT/ML 3ML SQ SCH ×4 (06:08→21:00)
[2017-12-15 07:29] VITALS: BP 125/67
[2017-12-15] MEDS: AMIODARONE HCL 200 MG TABLET PO SCH ×2 (07:57→19:56)
[2017-12-15] MEDS: FUROSEMIDE 20 MG TABLET PO SCH ×2 (07:58→16:59)
[2017-12-15] MEDS: ASPIRIN 81MG TAB.CHEW PO SCH (07:58)
[2017-12-15] MEDS: PANTOPRAZOLE SODIUM 40 MG TABLET.DR PO SCH (07:58)
[2017-12-15] MEDS: HYDROCODONE/ACETAMINOPHEN 5/325 MG TAB PO PRN ×2 (07:59→13:34)
[2017-12-15] MEDS: ENOXAPARIN SODIUM 30 MG/0.3 ML SQ SCH (08:00)
[2017-12-15 11:06] VITALS: BP 110/55
[2017-12-15 16:08] VITALS: BP 140/74
[2017-12-15 19:55] VITALS: BP 149/60
[2017-12-15] MEDS: ATORVASTATIN CALCIUM 10 MG TABLET PO SCH (19:56)
[2017-12-15] MEDS: CARVEDILOL 3.125 MG TABLET PO SCH (19:57)
[2017-12-16] VITALS (7 sets, daily range): BP systolic 107–146; BP diastolic 58–82
[2017-12-16] MEDS: ACETAMINOPHEN 325 MG TAB PO PRN ×4 (02:10→21:34)
[2017-12-16 04:47] LABS: CREATININE 0.7 mg/dL (0.5-1.5); POTASSIUM 3.6 mmol/L (3.5-5.1)
[2017-12-16] MEDS ORDERED: SODIUM CHLORIDE FOR INHALATION 3 ML VIAL.NEB. IH ONE ×5 (05:48→22:10)
[2017-12-16] MEDS: INSULIN HUMULIN R 100 UNIT/ML 3ML SQ SCH ×4 (05:54→21:31)
[2017-12-16] MEDS: ENOXAPARIN SODIUM 30 MG/0.3 ML SQ SCH (09:00)
[2017-12-16] MEDS: POTASSIUM CHLORIDE 20 MEQ ERTAB PO SCH (10:35)
[2017-12-16] MEDS: CARVEDILOL 3.125 MG TABLET PO SCH ×2 (10:35→21:27)
[2017-12-16] MEDS: AMIODARONE HCL 200 MG TABLET PO SCH ×2 (10:35→21:24)
[2017-12-16] MEDS: ASPIRIN 81MG TAB.CHEW PO SCH (10:35)
[2017-12-16] MEDS: PANTOPRAZOLE SODIUM 40 MG TABLET.DR PO SCH (10:35)
[2017-12-16] MEDS: FUROSEMIDE 20 MG TABLET PO SCH ×2 (10:36→17:21)
[2017-12-16] MEDS: POTASSIUM CHLORIDE 20 MEQ ERTAB PO PRN (17:23)
[2017-12-16] MEDS: ATORVASTATIN CALCIUM 10 MG TABLET PO SCH (21:24)
[2017-12-17] MEDS ORDERED: SODIUM CHLORIDE FOR INHALATION 3 ML VIAL.NEB. IH ONE ×4 (02:29→13:25)
[2017-12-17 04:01] VITALS: BP 123/64
[2017-12-17] MEDS: ACETAMINOPHEN 325 MG TAB PO PRN ×5 (05:01→16:32)
[2017-12-17 05:06] LABS: CREATININE 0.7 mg/dL (0.5-1.5); POTASSIUM 4.1 mmol/L (3.5-5.1)
[2017-12-17] MEDS: INSULIN HUMULIN R 100 UNIT/ML 3ML SQ SCH ×4 (06:11→16:35)
[2017-12-17 07:00] VITALS: BP 129/73
[2017-12-17] MEDS: ASPIRIN 81MG TAB.CHEW PO SCH (07:46)
[2017-12-17] MEDS: AMIODARONE HCL 200 MG TABLET PO SCH (07:46)
[2017-12-17] MEDS: CARVEDILOL 3.125 MG TABLET PO SCH (07:46)
[2017-12-17] MEDS: PANTOPRAZOLE SODIUM 40 MG TABLET.DR PO SCH (07:46)
[2017-12-17] MEDS: FUROSEMIDE 20 MG TABLET PO SCH ×2 (07:46→16:31)
[2017-12-17] MEDS: POTASSIUM CHLORIDE 20 MEQ ERTAB PO SCH (07:47)
[2017-12-17] MEDS: ENOXAPARIN SODIUM 30 MG/0.3 ML SQ SCH (07:47)
[2017-12-17 11:00] VITALS: BP 120/59
== END 2017-12-17 18:21 | DRG 233 ==
LOC: DAH 06:56 → DAHIP 06:57 → 2AH 14:18 → 2CV 12-05 06:50 → 2BH 12-06 06:17 → 2AH 12-12 16:48
PROVIDERS: ADMIT Family Medicine; ATTEND Internal Medicine Cardiovascular Disease
PROC: 4A023N7 Measurement of Cardiac Sampling and Pressure, Left Heart, Percutaneous Approach (ICD-10-PCS; principal; 2017-12-03)
PROC: B2111ZZ Fluoroscopy of Multiple Coronary Arteries using Low Osmolar Contrast (ICD-10-PCS; 2017-12-03)
PROC: B2151ZZ Fluoroscopy of Left Heart using Low Osmolar Contrast (ICD-10-PCS; 2017-12-03)
PROC: B2131ZZ Fluoroscopy of Multiple Coronary Artery Bypass Grafts using Low Osmolar Contrast (ICD-10-PCS; 2017-12-05)
PROC: 06BQ4ZZ Excision of Left Saphenous Vein, Percutaneous Endoscopic Approach (ICD-10-PCS; 2017-12-05)
PROC: 021109W Bypass Coronary Artery, Two Arteries from Aorta with Autologous Venous Tissue, Open Approach (ICD-10-PCS; 2017-12-05)
PROC: 5A1935Z Respiratory Ventilation, Less than 24 Consecutive Hours (ICD-10-PCS; 2017-12-05)
PROC: 0BH17EZ Insertion of Endotracheal Airway into Trachea, Via Natural or Artificial Opening (ICD-10-PCS; 2017-12-05)
PROC: 02100Z9 Bypass Coronary Artery, One Artery from Left Internal Mammary, Open Approach (ICD-10-PCS; 2017-12-05 07:56)
PROC: 5A1935Z Respiratory Ventilation, Less than 24 Consecutive Hours (ICD-10-PCS; 2017-12-09)
PROC: 5A1935Z Respiratory Ventilation, Less than 24 Consecutive Hours (ICD-10-PCS; 2017-12-11)
DX: I25.10 Atherosclerotic heart disease of native coronary artery without angina pectoris (principal); J96.90 Respiratory failure, unspecified, unspecified whether with hypoxia or hypercapnia; Z99.11 Dependence on respirator [ventilator] status; Z68.41 Body mass index [BMI] 40.0-44.9, adult; E11.22 Type 2 diabetes mellitus with diabetic chronic kidney disease; E11.51 Type 2 diabetes mellitus with diabetic peripheral angiopathy without gangrene; I48.91 Unspecified atrial fibrillation; E66.01 Morbid (severe) obesity due to excess calories; G52.2 Disorders of vagus nerve; I13.0 Hypertensive heart and chronic kidney disease with heart failure and stage 1 through stage 4 chronic kidney disease, or unspecified chronic kidney disease; I50.22 Chronic systolic (congestive) heart failure; N39.0 Urinary tract infection, site not specified; J98.11 Atelectasis; I97.121 Postprocedural cardiac arrest following other surgery; E11.65 Type 2 diabetes mellitus with hyperglycemia; F32.9 Major depressive disorder, single episode, unspecified; E78.5 Hyperlipidemia, unspecified; G47.33 Obstructive sleep apnea (adult) (pediatric); I25.5 Ischemic cardiomyopathy; N18.3 Chronic kidney disease, stage 3 (moderate); I25.2 Old myocardial infarction; Z79.82 Long term (current) use of aspirin; Z79.899 Other long term (current) drug therapy; Z95.1 Presence of aortocoronary bypass graft; Z90.710 Acquired absence of both cervix and uterus; Z82.49 Family history of ischemic heart disease and other diseases of the circulatory system
CPT/HCPCS: 31500; 36415; 36600; 70450; 71045; 71046; 71250; 80048; 80053; 80061; 81001; 82330; 82435; 82550; 82553; 82803; 82947; 82948; 83036; 83605; 83735; 83874; 83880; 84100; 84132; 84295; 84484; 85018; 85025; 85027; 85347; 85610; 85730; 86850; 86900; 86901; 86922; 87088; 92950; 93005; 93306; 93458; 93880; 94002; 94003; 94010; 94150; 94640; 94660; 94664; 97039; A4218; A4606; A7048; C1760; C1894; G0378; J0171; J0282; J0696; J0697; J1250; J1644; J1650; J1815; J1940; J2001; J2185; J2250; J2260; J2270; J2405; J2440; J2704; J2720; J2795; J3010; J3475; J3480; J3490; J7030; J7040; J7060; P9045; Q9967